=== PATIENT | male | born 1965 | race Caucasian/White ===

== ENCOUNTER 2017-05-21 13:14 | Inpatient (IN) | payer OTHER ==
[~2017-05-21] VITALS: Ht 188 cm; Wt 131.0 kg
[~2017-05-21 13:14] MED LIST: AUGMENTIN875 MG PO
[2017-05-21 13:40] LABS: HEMATOCRIT 40.9 % (38.0-50.0); HEMOGLOBIN 13.7 G/DL (12.5-16.6); MCH 30.2 PG (29.0-34.0); MCHC 33.5 G/DL (30.0-36.0); MCV 90.1 FL (86-99); PLATELET COUNT 217 K/uL (156-360); RBC DIS.WIDTH-CV 13.7 % (11.8-14.6); RBC DIS.WIDTH-SD 45.3 % (39-53); RED BLOOD COUNT 4.54 M/uL (4.00-5.50)
[2017-05-21 13:49] LABS: CHLORIDE 108 mEq/L (99-109); POTASSIUM 4.1 mEq/L (3.7-5.4); SODIUM 140 mEq/L (136-147)
[2017-05-21 13:50] LABS: MAGNESIUM 1.6 mg/dL (1.3-2.7)
[2017-05-21 13:51] LABS: GLUCOSE 114 mg/dL (70-99)
[2017-05-21 13:55] LABS: CREATININE 1.2 mg/dL (0.6-1.3); GFR ESTIMATE (CALCULATED) > 59 mL/min/ (58.99-99999)
[2017-05-21 13:56] LABS: UREA NITROGEN (BUN) 16 mg/dL (9-23)
[2017-05-21 14:35] LABS: TROP-I INTERPRETATION NEGATIVE; TROPONIN-I 0.13 ng/mL (0.0-0.30)
[2017-05-21 17:39] LABS: TROP-I INTERPRETATION NEGATIVE; TROPONIN-I 0.13 ng/mL (0.0-0.30)
[2017-05-21 17:53] LABS: HDL CHOLESTEROL 27 MG/DL (Desirable>=40); LDL CHOLESTEROL 49 mg/dL (Desirable<100); NON-HDL CHOLESTEROL 63 mg/dL (Desirable<160); TOTAL CHOLESTEROL 90 mg/dL (Desirable<200); TRIGLYCERIDES 68 MG/DL (Normal: <150)
[2017-05-21 18:22] LABS: THYROTROPIN (TSH) 1.2 MIU/L (0.4-5.5)
[2017-05-21 21:35] VITALS: BP 134/88
[2017-05-21 22:50] VITALS: BP 100/50
[2017-05-21 23:13] LABS: TROP-I INTERPRETATION NEGATIVE; TROPONIN-I 0.11 ng/mL (0.0-0.30)
[2017-05-22 03:14] VITALS: BP 100/52
[2017-05-22 06:02] LABS: CHLORIDE 107 MEQ/L (99-109); CREATININE 1.1 MG/DL (0.6-1.3); GFR ESTIMATE (CALCULATED) > 59 mL/min/ (58.99-99999); GLUCOSE 87 mg/dL (70-99); POTASSIUM 3.6 MEQ/L (3.7-5.4); SODIUM 145 MEQ/L (136-147); UREA NITROGEN (BUN) 16 mg/dL (9-23)
[2017-05-22 08:44] VITALS: BP 114/68
[2017-05-22 10:17] LABS: HEMOGLOBIN A1c (GLYCOHEMOGLOB) 5.8 % (Below 5.7)
[2017-05-22 11:29] VITALS: BP 102/62
[2017-05-22 15:37] VITALS: BP 102/68
[2017-05-22 19:53] VITALS: BP 124/69
[2017-05-22 22:41] VITALS: BP 101/80
[2017-05-23 04:18] VITALS: BP 103/72
[2017-05-23 05:54] LABS: CHLORIDE 107 MEQ/L (99-109); GFR ESTIMATE (CALCULATED) > 59 mL/min/ (58.99-99999); GLUCOSE 90 mg/dL (70-99); POTASSIUM 4.3 MEQ/L (3.7-5.4); SODIUM 143 MEQ/L (136-147); UREA NITROGEN (BUN) 12 mg/dL (9-23)
[2017-05-23 12:14] VITALS: BP 101/72
[2017-05-23] MEDS ORDERED: CARDIZEM CD,CA180 MG PO (13:46)
[2017-05-23] MEDS ORDERED: LOPRESSOR25 MG PO (13:46)
[2017-05-23] MEDS ORDERED: DIGOXIN250 MCG PO (13:46)
[2017-05-23] MEDS ORDERED: ELIQUIS5 MG PO (13:46)
[2017-05-23 15:51] VITALS: BP 112/62
[2017-05-23 19:02] VITALS: BP 97/68
[2017-05-23 23:47] VITALS: BP 122/58
[2017-05-24 03:25] VITALS: BP 110/68
[2017-05-24 07:02] VITALS: BP 107/74
[2017-05-24 11:10] VITALS: BP 81/55
[2017-05-24 14:23] VITALS: BP 113/59
[2017-05-24] MEDS ORDERED: LASIX20 MG PO (14:44)
[2017-05-24] MEDS ORDERED: METOPROLOL TART50 MG PO (14:49)
== END 2017-05-24 15:25 | disposition home or self-care (01) | DRG 308 ==
LOC: EME 13:14 → 4EAST 16:23 → EDOF 16:23 → ENRESERV 16:24 → 4EAST 21:16 → ENPENDDIS 05-24 → 4EAST 05-24 15:25
PROVIDERS: Hospitalist; Internal Medicine Cardiovascular Disease
DX: I48.91 Unspecified atrial fibrillation (principal); I50.21 Acute systolic (congestive) heart failure; E87.6 Hypokalemia; I42.9 Cardiomyopathy, unspecified; I47.2 Ventricular tachycardia; F17.210 Nicotine dependence, cigarettes, uncomplicated; E66.9 Obesity, unspecified; Z68.37 Body mass index [BMI] 37.0-37.9, adult
CPT/HCPCS: 71275; 80048; 80061; 83036; 83735; 83880; 84443; 84484; 85027; 93005; 93306; 99281; 99285; J1160; J1650; J1940; J3475; J3480; J7050

== ENCOUNTER 2017-06-20 09:09 | Day surgery (SDC) | payer OTHER ==
[~2017-06-20] VITALS: Ht 188 cm; Wt 117.0 kg
[~2017-06-20 09:09] MED LIST changes: +AMIODARONE HCL200 MG PO; +CARDIZEM CD,CA180 MG PO; +DIGOXIN250 MCG PO; +ELIQUIS5 MG PO; +HOUR ENERGY PO; +LASIX20 MG PO; +LISINOPRIL5 MG PO; +LOPRESSOR25 MG PO; +METOPROLOL TART25 MG PO; +METOPROLOL TART50 MG PO
== END 2017-06-20 11:33 | disposition home or self-care (01) ==
LOC: CATH 09:09
PROC: 5A2204Z Restoration of Cardiac Rhythm, Single (ICD-10-PCS; principal; 2017-06-20)
DX: I48.1 Persistent atrial fibrillation (principal); I42.9 Cardiomyopathy, unspecified; I11.0 Hypertensive heart disease with heart failure; I50.22 Chronic systolic (congestive) heart failure; Z87.891 Personal history of nicotine dependence; Z79.01 Long term (current) use of anticoagulants
CPT/HCPCS: 93005